=== PATIENT | male | born 1960 | race Two or more races ===

== ENCOUNTER 2019-02-02 04:47 | Emergency (ER) | payer MEDICAID ==
[~2019-02-02] VITALS: Ht 167.6 cm; Wt 60.3 kg
--- NOTE | 2019-02-02 04:50 | NUR ---
PT BIB EMS C/O WOKE UP WITH DIAPHORESIS AND MILD SOB. PT ON BACTRIM IV TX FOR SYPHILLS. HX. CVA 01/12/19. PT DENIES PAIN AT THIS TIME PT ON MONITOR IN BED 2. WILL CONTINUE TO MONITOR.
--- NOTE | 2019-02-02 05:08 | NUR ---
PT BROTHER AT BEDSIDE.
--- NOTE | 2019-02-02 06:27 | NUR ---
pt brother at bedside to take pt home. Patient discharged to home in stable condition. Written and verbal after care instructions given. Patient verbalizes understanding of instruction. pt [id number] no acute distress noted, resp even and unlabored. pt denies pain or discomfort at this time.
[2019-02-02 06:28] VITALS: BP 129/66
== END 2019-02-02 06:30 | disposition home or self-care (01) ==
LOC: ER 04:47
DX: R61 Generalized hyperhidrosis (principal); Z86.73 Personal history of transient ischemic attack (TIA), and cerebral infarction without residual deficits
CPT/HCPCS: 71045-TC; 82962-TC